=== PATIENT | male | born 2000 | race Asian ===

== ENCOUNTER → 2021-10-19 | Outpatient (CLI) | payer BC ==
[2021-10-23 18:11] LABS: QUANTIFERON MITOGEN VALUE >10.00 IU/mL (.); QUANTIFERON TB1 AG VALUE 0.11 IU/mL (.); QUANTIFERON TB2 AG VALUE 0.13 IU/mL (.); QUANTIFERON-TB GOLD PLUS Negative (Negative)
== END ==
LOC: LAB 10:24
PROVIDERS: Physician Assistant
DX: Z02.1 Encounter for pre-employment examination (principal)
CPT/HCPCS: 36415